=== PATIENT | male | born 1985 ===

== ENCOUNTER 2024-08-28 19:00 | Emergency (ER) | payer OTHER ==
[~2024-08-28] VITALS: Ht 157.5 cm; Wt 58.6 kg
[2024-08-28] MEDS: IBUPROFEN 600 MG TABLET PO ONE (20:04)
[2024-08-28 23:12] VITALS: BP 134/75; PULSE 78; RESP 15; TEMP 97.9; O2SAT 98
== END 2024-08-28 23:31 | disposition home or self-care (01) ==
LOC: EMS 19:00
DX: S93.402A Sprain of unspecified ligament of left ankle, initial encounter (principal); W18.2XXA Fall in (into) shower or empty bathtub, initial encounter; Y93.E1 Activity, personal bathing and showering; Y92.89 Other specified places as the place of occurrence of the external cause; Y99.8 Other external cause status
CPT/HCPCS: 99284; 73562-TC; 73610-TC; Z7502; Z7610